=== PATIENT | female | born 1940 | race Two or more races ===

== ENCOUNTER 2024-05-12 12:53 | Emergency (ER) | payer OTHER ==
[~2024-05-12] VITALS: Ht 157.5 cm; Wt 61.2 kg
[2024-05-12] MEDS ORDERED: KETOROLAC TROMETHAMINE 30 MG VIAL IV STA (17:16)
[2024-05-12] MEDS ORDERED: MEPERIDINE HCL/PF 25 MG/ML VIAL IM STA (17:24)
[2024-05-12] MEDS ORDERED: ONDANSETRON HCL 2 MG/ML VIAL IV STA (17:25)
[2024-05-12] MEDS ORDERED: KETOROLAC TROMETHAMINE 30 MG VIAL ONE (17:29)
[2024-05-12] MEDS ORDERED: ONDANSETRON HCL 2 MG/ML VIAL ONE (17:29)
[2024-05-12 18:03] LABS: HEMATOCRIT 35.9 % (36.0-45.00); MEAN CELL VOLUME 93.4 fL (80.00-100.00); MEAN CORPUSCULAR HEMOGLOBIN 31.1 pg (27.00-32.0); MEAN CORPUSCULAR HGB CONC 33.3 g/dl (32.0-36.0); PLATELET COUNT 388 K/uL (150-450); RED BLOOD COUNT 3.85 M/uL (4.00-6.00)
[2024-05-12 18:05] LABS: RED CELL DISTRIBUTION WIDTH 17.8 % (11.5-14.5)
[2024-05-12 18:24] LABS: INR 1.02; PARTIAL THROMBOPLASTIN TIME 20.5 SECONDS (22.0-34.0); PROTHROMBIN TIME 11.1 SECONDS (9.0-11.5)
[2024-05-12 18:25] LABS: CALCIUM 10.4 mg/dL (8.5-10.1); CREATININE SERUM 1.17 mg/dL (0.55-1.02); GFR 43.96; POTASSIUM 4.29 mEq/L (3.5-5.1)
== END 2024-05-13 12:10 | disposition home or self-care (01) ==
LOC: ER 12:53
DX: S70.01XA Contusion of right hip, initial encounter (principal); W19.XXXA Unspecified fall, initial encounter; Y93.89 Activity, other specified; Y92.89 Other specified places as the place of occurrence of the external cause; Y99.8 Other external cause status; M54.50 Low back pain, unspecified; M54.16 Radiculopathy, lumbar region; R53.81 Other malaise; Z88.8 Allergy status to other drugs, medicaments and biological substances
CPT/HCPCS: 36415; 72100; 73521; 73552; 96372; 99283; J1885; J2405; J3490

== ENCOUNTER 2024-05-14 00:59 | Inpatient (IN) | payer OTHER ==
[~2024-05-14] VITALS: Ht 152.4 cm; Wt 45.4 kg
[2024-05-14] MEDS ORDERED: 0.9 % SODIUM CHLORIDE 1,000 ML IV ONE (02:00)
[2024-05-14] MEDS ORDERED: 0.9 % SODIUM CHLORIDE 250 ML IV SCH (02:00)
--- NOTE | 2024-05-14 02:11 | NUR ---
SE RECIBE PACIENTE ALERTA Y ORIENTADA X3 EN COMPANIUA DE PARAMEDICOS E AMBULANCIA LOS CUALES REFIEREN TRAER A PACIENTE A CAUSA DE QUE BOLIVAR ESTADO HIPOACTIVA Y CON HIPOTENSION. AL MOMENTO PACIENTE PRESENTA 60/40 DE B/P. SE REALIZA EKG Y SE BICA.
--- NOTE | 2024-05-14 02:30 | NUR ---
SE COLACA EN ANA YARITZA # 2 SE CONECTA A MONITOR CARDIACO Y OXIMETRIA DE PULSO. SE CANALIZA X2 EN ANTEBRAZO DERECHO # 20 Y BRAZO DERECHO # 18 SE COLOCA PUSH DE 0.9NSS 250ML POR ORDEN VERBAL DE DR. HUERTA. SE SANJANA MUESTRAS DE LABORATORIOS ORDENAS Y SE ENVIAN. SE COLOCA CATETER HOGAN Y SE OBSERVA 5 ML DE EGRESO URINARIO. PENDIENTE A MARILOU MUESTRA DE U/A Y U/C. PENDIENTE A PLACA Y CT HEAD
[2024-05-14 03:01] LABS: POTASSIUM 4.04 mEq/L (3.5-5.1)
[2024-05-14 03:04] LABS: INR 1.05; PARTIAL THROMBOPLASTIN TIME 24.2 SECONDS (22.0-34.0); PROTHROMBIN TIME 11.4 SECONDS (9.0-11.5)
[2024-05-14 03:10] LABS: BILIRUBIN TOTAL 1.19 mg/dL (0.3-1.2); CALCIUM 10.3 mg/dL (8.5-10.1); CREATININE SERUM 1.92 mg/dL (0.55-1.02); GFR 24.82; GLOBULINA 3.6 G/DL (2.4-3.5); HEMATOCRIT 34.7 % (36.0-45.00); HEMOGLOBIN 11.6 g/dL (12.0-15.00); MEAN CELL VOLUME 92.7 fL (80.00-100.00); MEAN CORPUSCULAR HGB CONC 33.4 g/dl (32.0-36.0); PLATELET COUNT 430 K/uL (150-450); RED BLOOD COUNT 3.74 M/uL (4.00-6.00); RED CELL DISTRIBUTION WIDTH 17.9 % (11.5-14.5); TOTAL PROTEIN 6.6 gm/dL (6.4-8.2)
--- NOTE | 2024-05-14 03:48 | NUR ---
SE OBSERVO AREA DE PRESION SACRAL ESTADIO 1 SE COLOCA PARCHO PREVENTIVO
[2024-05-14] MEDS ORDERED: CEFTRIAXONE SODIUM 1,000 MG VIAL IV STA (03:54)
[2024-05-14] MEDS ORDERED: CEFTRIAXONE SODIUM 1,000 MG VIAL ONE (04:01)
--- NOTE | 2024-05-14 04:36 | NUR ---
SE LLEVA PACIENTE A CT SCAN SE REALIZA EL MISMO. POR ORDEN VERBAL DE DR. HUERTA SE COLOCA PACIENTE EN AREA DE K-8 CON MONITOR CARDIACO Y OXIMETRIA DE PULSO. SE ENTREGA PACIENTE A RN ROMEL LI PENDIENTE A MARILOU U/A Y U/A Y TROPONINA MIMS 6:30AM.
--- NOTE | 2024-05-14 07:00 | NUR ---
SE RECIBE PTE ALERTA ORIENTADA EN PERSONA EN CAMA CON BARANDAS ELEVADAS POR NICOLAS SEGURIDAD CONECTADA A MONITOR CARDIACO.VENOPUNCION PATENTE AALIYAH DE EDEMA Y ERITEMA RECIBIENDO 0.9 NSS BAJANDO A 150ML/HR .CON SONDA URINARIA A GRAVEDAD CON POCO EGRESO.PENDIENTE U/A Y U/C.
[2024-05-14] MEDS ORDERED: OSELTAMIVIR PHOSPHATE 75 MG CAPSULE PO SCH (13:21)
[2024-05-14] MEDS ORDERED: CEFTRIAXONE SODIUM 2,000 MG in 0.9 % SODIUM CHLORIDE 100 ML IV SCH (13:23)
[2024-05-14] MEDS ORDERED: 0.9 % SODIUM CHLORIDE 1,000 ML IV SCH (13:30)
[2024-05-14] MEDS ORDERED: ACETAMINOPHEN 500 MG GEL..CAP PO PRN (13:30)
[2024-05-14 14:40] LABS: PH,URINE 5.5 (5.0-8.0); URINE APPEARANCE Cloudy; URINE BILIRRUBIN Negative (NEGATIVE); URINE BLOOD Moderate; URINE COLOR Yellow; URINE GLUCOSE Negative (NEGATIVE); URINE KETONE Negative (NEGATIVE); URINE LEUKOCYTE Small; URINE NITRATE Negative; URINE PROTEIN 30 (NEGATIVE)
[2024-05-14 14:42] LABS: URINE BACTERIA 637.6 uL (0.0-1933); URINE CAST 4.56 uL (0.0-1.40); URINE EPITHELIAL CELLS 130.6 uL (0.0-38.8); URINE RBC 13.1 uL (0.0-20.8); URINE WBC 124.7 uL (0.0-23.2)
[2024-05-14 14:59] LABS: URINE CRYSTALS FEW /HPF; URINE MUCUS SCANT
[2024-05-14 16:06] VITALS: BP 124/76; O2SAT 97
[2024-05-14 16:53] LABS: INR 1.07; PARTIAL THROMBOPLASTIN TIME 24.5 SECONDS (22.0-34.0); PROTHROMBIN TIME 11.6 SECONDS (9.0-11.5)
[2024-05-14 16:58] LABS: ALBUMIN 2.5 gm/dL (3.4-5.0); CALCIUM 9.4 mg/dL (8.5-10.1); CREATININE SERUM 2.11 mg/dL (0.55-1.02); GFR 22.26; PHOSPHOROUS 3.5 mg/dL (2.5-4.9); POTASSIUM 4.18 mEq/L (3.5-5.1)
[2024-05-14 17:03] LABS: C-REACTIVE PROTEIN 10.9 MG/DL (0.00-0.29)
[2024-05-14 21:00] VITALS: O2SAT 90
[2024-05-14 21:29] VITALS: BP 111/57; O2SAT 97
[2024-05-14 23:59] VITALS: O2SAT 99
[2024-05-15] VITALS (10 sets, daily range): BP systolic 97–119; BP diastolic 51–68; O2SAT 94–99
[2024-05-15 07:01] LABS: HEMATOCRIT 31.3 % (36.0-45.00); HEMOGLOBIN 10.4 g/dL (12.0-15.00); MEAN CELL VOLUME 93.2 fL (80.00-100.00); MEAN CORPUSCULAR HEMOGLOBIN 31.1 pg (27.00-32.0); MEAN CORPUSCULAR HGB CONC 33.3 g/dl (32.0-36.0); PLATELET COUNT 378 K/uL (150-450); RED BLOOD COUNT 3.36 M/uL (4.00-6.00); RED CELL DISTRIBUTION WIDTH 17.5 % (11.5-14.5)
[2024-05-15] MEDS ORDERED: OSELTAMIVIR PHOSPHATE 30MG CAP PO SCH (09:00)
[2024-05-15] MEDS ORDERED: LINEZOLID IN DEXTROSE 5% 600 MG/300 ML PIGGYBAG IV SCH (09:00)
[2024-05-15] MEDS ORDERED: METOPROLOL SUCCINATE 50 MG TAB.SR.24H PO STA (10:01)
[2024-05-15] MEDS ORDERED: DILTIAZEM HCL 125 MG in 0.9 % SODIUM CHLORIDE 100 ML IV SCH (12:00)
[2024-05-15] MEDS ORDERED: DILTIAZEM HCL 125MG/25ML VIAL IV ONE ×2 (12:06→22:14)
[2024-05-15] MEDS ORDERED: Daptomycin 350 MG/VIAL VIAL IV NR (15:30)
[2024-05-15] MEDS ORDERED: LACTOBACILLUS ACIDOPHILUS 1 CAP CAP PO SCH (17:00)
[2024-05-16] VITALS (9 sets, daily range): BP systolic 82–95; BP diastolic 5–59; O2SAT 94–97
[2024-05-16] MEDS ORDERED: MUPIROCIN 22 GM OINT..GM TUBE NASAL SCH (17:00)
[2024-05-16] MEDS ORDERED: METOPROLOL TARTRATE 5MG/5ML AMPUL IV ONE (23:15)
[2024-05-17] VITALS (8 sets, daily range): BP systolic 101–107; BP diastolic 51–66; O2SAT 96–98
[2024-05-17] MEDS ORDERED: CHLORHEXIDINE GLUCONATE 120 ML BOTTLE TOP SCH (09:00)
[2024-05-17] MEDS ORDERED: ENOXAPARIN SODIUM 40 MG/0.4 ML SYRINGE SUBCUTANEO SCH (09:00)
[2024-05-17] MEDS ORDERED: Daptomycin 350 MG/VIAL VIAL IV SCH (17:00)
[2024-05-18] VITALS (9 sets, daily range): BP systolic 99–147; BP diastolic 60–68; O2SAT 94–98
[2024-05-18] MEDS ORDERED: Daptomycin 350 MG/VIAL VIAL IV SCH (09:00)
[2024-05-18 10:55] LABS: MEAN CELL VOLUME 90.7 fL (80.00-100.00); MEAN CORPUSCULAR HGB CONC 33.1 g/dl (32.0-36.0); PLATELET COUNT 401 K/uL (150-450); RED CELL DISTRIBUTION WIDTH 17.4 % (11.5-14.5)
[2024-05-18 10:58] LABS: HEMOGLOBIN 9.6 g/dL (12.0-15.00)
[2024-05-18 11:51] LABS: CALCIUM 8.4 mg/dL (8.5-10.1); CREATININE SERUM 0.97 mg/dL (0.55-1.02); GFR 54.58; POTASSIUM 3.2 mEq/L (3.5-5.1)
[2024-05-19] VITALS (13 sets, daily range): BP systolic 103–129; BP diastolic 59–75; O2SAT 90–100
[2024-05-19 10:01] LABS: HEMATOCRIT 29.4 % (36.0-45.00); MEAN CELL VOLUME 89.3 fL (80.00-100.00); MEAN CORPUSCULAR HGB CONC 33.5 g/dl (32.0-36.0); PLATELET COUNT 430 K/uL (150-450); RED CELL DISTRIBUTION WIDTH 17.8 % (11.5-14.5)
[2024-05-19 10:04] LABS: HEMOGLOBIN 9.8 g/dL (12.0-15.00); MEAN CORPUSCULAR HEMOGLOBIN 29.6 pg (27.00-32.0)
[2024-05-19 10:06] LABS: CALCIUM 8.6 mg/dL (8.5-10.1); CREATININE SERUM 0.88 mg/dL (0.55-1.02); GFR 61.07; POTASSIUM 3.49 mEq/L (3.5-5.1)
[2024-05-20] VITALS (16 sets, daily range): BP systolic 97–130; BP diastolic 56–85; O2SAT 90–100
[2024-05-20 06:49] LABS: CALCIUM 7.8 mg/dL (8.5-10.1); CREATININE SERUM 0.8 mg/dL (0.55-1.02); GFR 68.17
[2024-05-20 07:13] LABS: POTASSIUM 2.81 mEq/L (3.5-5.1)
[2024-05-20] MEDS ORDERED: Daptomycin 350 MG/VIAL VIAL IV SCH (09:00)
[2024-05-20] MEDS ORDERED: POTASSIUM CHLORIDE 20MEQ/100ML H2O PB IV ONE (10:07)
[2024-05-20] MEDS ORDERED: POTASSIUM CHLORIDE 20MEQ/100ML H2O PB IV SCH (13:00)
[2024-05-20] MEDS ORDERED: METOPROLOL TARTRATE 25 MG TABLET PO SCH (17:00)
[2024-05-20] MEDS ORDERED: AMIODARONE HCL 200 MG TABLET PO SCH (21:00)
[2024-05-21] VITALS (18 sets, daily range): BP systolic 107–148; BP diastolic 69–103; O2SAT 95–100
[2024-05-21] MEDS ORDERED: METOPROLOL TARTRATE 25 MG TABLET PO SCH (09:00)
[2024-05-21 09:13] LABS: CALCIUM 7.6 mg/dL (8.5-10.1); CREATININE SERUM 0.68 mg/dL (0.55-1.02); GFR 82.23; POTASSIUM 3.76 mEq/L (3.5-5.1)
[2024-05-21] MEDS ORDERED: Daptomycin 350 MG/VIAL VIAL IV SCH (12:00)
[2024-05-21] MEDS ORDERED: PIPERACILLIN/TAZOBACTAM SODIUM 4.5 GM VIAL IV SCH (21:00)
[2024-05-22] VITALS (11 sets, daily range): BP systolic 109–144; BP diastolic 45–84; O2SAT 94–100
[2024-05-22 07:00] LABS: CALCIUM 7.8 mg/dL (8.5-10.1); CREATININE SERUM 0.75 mg/dL (0.55-1.02); GFR 73.44; POTASSIUM 3.82 mEq/L (3.5-5.1)
[2024-05-22] MEDS ORDERED: FUROsemide 20 MG/2 ML VIAL IV NR (11:45)
[2024-05-23] VITALS (9 sets, daily range): BP systolic 102–131; BP diastolic 48–74; O2SAT 94–100
[2024-05-23] MEDS ORDERED: FUROsemide 20 MG/2 ML VIAL IV SCH (09:00)
[2024-05-23] MEDS ORDERED: AMIODARONE HCL 200 MG TABLET PO SCH (09:00)
[2024-05-23] MEDS ORDERED: METOPROLOL TARTRATE 50 MG TABLET PO SCH (17:00)
[2024-05-24] VITALS (10 sets, daily range): BP systolic 100–125; BP diastolic 50–95; O2SAT 95–100
[2024-05-24] MEDS ORDERED: AMIODARONE IN DEXTROSE,ISO-OSM 360 MG/200 ML IV.SOLN IV ONE (01:55)
[2024-05-24 11:57] LABS: HEMATOCRIT 26.3 % (36.0-45.00); MEAN CELL VOLUME 87.6 fL (80.00-100.00); MEAN CORPUSCULAR HEMOGLOBIN 29.6 pg (27.00-32.0); MEAN CORPUSCULAR HGB CONC 33.8 g/dl (32.0-36.0); PLATELET COUNT 520 K/uL (150-450); RED CELL DISTRIBUTION WIDTH 18.4 % (11.5-14.5)
[2024-05-24 11:58] LABS: HEMOGLOBIN 8.9 g/dL (12.0-15.00)
[2024-05-24 12:08] LABS: ALBUMIN 1.5 gm/dL (3.4-5.0); BILIRUBIN TOTAL 0.64 mg/dL (0.3-1.2); CALCIUM 7.9 mg/dL (8.5-10.1); CREATININE SERUM 0.92 mg/dL (0.55-1.02); GFR 58.02; GLOBULINA 4.6 G/DL (2.4-3.5); TOTAL PROTEIN 6.1 gm/dL (6.4-8.2)
[2024-05-24 12:16] LABS: POTASSIUM 2.64 mEq/L (3.5-5.1)
[2024-05-24] MEDS ORDERED: POTASSIUM CHLORIDE IN WATER 40 MEQ/100 ML PIGGYBAG IV NR (15:00)
[2024-05-25 03:58] VITALS: BP 117/48; O2SAT 100
[2024-05-25 07:01] VITALS: BP 123/52; O2SAT 100
[2024-05-25 07:05] LABS: HEMATOCRIT 24.7 % (36.0-45.00); MEAN CELL VOLUME 87.9 fL (80.00-100.00); MEAN CORPUSCULAR HEMOGLOBIN 30.6 pg (27.00-32.0); MEAN CORPUSCULAR HGB CONC 34.8 g/dl (32.0-36.0); PLATELET COUNT 462 K/uL (150-450); RED BLOOD COUNT 2.81 M/uL (4.00-6.00); RED CELL DISTRIBUTION WIDTH 18.5 % (11.5-14.5)
[2024-05-25 07:06] LABS: CALCIUM 8.3 mg/dL (8.5-10.1); CREATININE SERUM 0.91 mg/dL (0.55-1.02); GFR 58.75; POTASSIUM 3.43 mEq/L (3.5-5.1)
[2024-05-25 07:18] LABS: HEMOGLOBIN 8.6 g/dL (12.0-15.00)
[2024-05-25 12:00] VITALS: BP 114/63; O2SAT 100
[2024-05-25 16:57] VITALS: BP 110/61
[2024-05-25] MEDS ORDERED: Daptomycin 350 MG/VIAL VIAL IV SCH (17:00)
[2024-05-26 01:20] VITALS: BP 127/56
[2024-05-26 08:08] VITALS: BP 145/72
[2024-05-26] MEDS ORDERED: NYSTATIN TOP SCH (10:58)
[2024-05-26] MEDS ORDERED: SILVER SULFADIAZINE TOP SCH (10:58)
[2024-05-26] MEDS ORDERED: ZINC OXIDE TOP SCH (10:58)
[2024-05-26] MEDS ORDERED: SILVER SULFADIAZINE 50 GM,NYSTATIN 30 GM,ZINC OXIDE 30 GM TOP SCH (13:00)
[2024-05-26 16:52] VITALS: BP 108/61; O2SAT 98
[2024-05-26] MEDS ORDERED: FAMOtidine 20 MG TABLET PO SCH (21:00)
[2024-05-26] MEDS ORDERED: LORazepam 0.5 MG TABLET PO SCH (21:00)
[2024-05-27 01:58] VITALS: BP 118/60
[2024-05-27 06:34] LABS: HEMOGLOBIN 10.8 g/dL (12.0-15.00); MEAN CELL VOLUME 89.7 fL (80.00-100.00); MEAN CORPUSCULAR HEMOGLOBIN 30.3 pg (27.00-32.0); MEAN CORPUSCULAR HGB CONC 33.8 g/dl (32.0-36.0); PLATELET COUNT 450 K/uL (150-450); RED BLOOD COUNT 3.57 M/uL (4.00-6.00); RED CELL DISTRIBUTION WIDTH 18.8 % (11.5-14.5)
[2024-05-27 08:36] VITALS: BP 140/51
[2024-05-27 10:55] LABS: CALCIUM 8.9 mg/dL (8.5-10.1); CREATININE SERUM 0.94 mg/dL (0.55-1.02); GFR 56.59; POTASSIUM 3.54 mEq/L (3.5-5.1)
[2024-05-27 20:18] VITALS: BP 107/57; O2SAT 97
[2024-05-28 02:12] VITALS: BP 128/67
[2024-05-28 09:29] VITALS: BP 131/62
[2024-05-28] MEDS ORDERED: SODIUM HYPOCHLORITE 1OZ TOP SCH (11:00)
[2024-05-28 17:23] VITALS: BP 124/57; O2SAT 98
[2024-05-29 01:55] VITALS: BP 127/57
[2024-05-29 12:27] VITALS: BP 142/79
[2024-05-29 16:55] VITALS: BP 90/60; O2SAT 99
[2024-05-30 00:51] VITALS: BP 116/53
[2024-05-30 08:55] VITALS: BP 100/60; O2SAT 98
[2024-05-30 14:35] LABS: HEMATOCRIT 29.2 % (36.0-45.00); HEMOGLOBIN 9.6 g/dL (12.0-15.00); MEAN CELL VOLUME 87.9 fL (80.00-100.00); PLATELET COUNT 572 K/uL (150-450); RED BLOOD COUNT 3.33 M/uL (4.00-6.00); RED CELL DISTRIBUTION WIDTH 19.4 % (11.5-14.5)
[2024-05-30 14:53] LABS: ALBUMIN 1.5 gm/dL (3.4-5.0); BILIRUBIN TOTAL 0.7 mg/dL (0.3-1.2); CALCIUM 8.4 mg/dL (8.5-10.1); CREATININE SERUM 1.19 mg/dL (0.55-1.02); GFR 43.11; GLOBULINA 4.8 G/DL (2.4-3.5); TOTAL PROTEIN 6.3 gm/dL (6.4-8.2)
[2024-05-30 14:55] LABS: POTASSIUM 2.68 mEq/L (3.5-5.1)
[2024-05-30] MEDS ORDERED: Daptomycin 350 MG/VIAL VIAL IV SCH (17:00)
[2024-05-30] MEDS ORDERED: POTASSIUM CHLORIDE IN WATER 40 MEQ/100 ML PIGGYBAG IV NR (17:00)
[2024-05-30] MEDS ORDERED: MAGNESIUM SULFATE IN WATER 2 GM/50 ML PIGGYBAG IV NR (17:00)
[2024-05-30 17:26] VITALS: BP 101/44
[2024-05-30] MEDS ORDERED: POTASSIUM BICARBONATE/CIT AC 25 MEQ TABLET.EFF PO SCH (18:00)
[2024-05-31 00:40] VITALS: BP 95/61
[2024-05-31 09:29] VITALS: BP 108/50; O2SAT 98
[2024-05-31] MEDS ORDERED: SPIRONOLACTONE 50 MG TABLET PO NR (12:00)
[2024-05-31 18:25] VITALS: BP 93/45
[2024-05-31] MEDS ORDERED: METOPROLOL TARTRATE 25 MG TABLET PO SCH (21:00)
[2024-06-01 00:35] VITALS: BP 115/51
[2024-06-01 07:24] LABS: CALCIUM 9.2 mg/dL (8.5-10.1); CREATININE SERUM 1.06 mg/dL (0.55-1.02); GFR 49.27; POTASSIUM 3.31 mEq/L (3.5-5.1)
[2024-06-01 07:44] LABS: MEAN CORPUSCULAR HEMOGLOBIN 29.8 pg (27.00-32.0); MEAN CORPUSCULAR HGB CONC 33.1 g/dl (32.0-36.0); RED BLOOD COUNT 3.08 M/uL (4.00-6.00); RED CELL DISTRIBUTION WIDTH 19.3 % (11.5-14.5)
[2024-06-01 07:54] LABS: HEMOGLOBIN 9.2 g/dL (12.0-15.00)
[2024-06-01 07:55] LABS: HEMATOCRIT 27.8 % (36.0-45.00); PLATELET COUNT 567 K/uL (150-450)
[2024-06-01] MEDS ORDERED: SPIRONOLACTONE 50 MG TABLET PO SCH (09:00)
[2024-06-01 09:03] VITALS: BP 118/60; O2SAT 95
[2024-06-01 17:28] VITALS: BP 115/50
[2024-06-02 02:21] VITALS: BP 125/64; O2SAT 99
[2024-06-02 07:52] LABS: CREATININE SERUM 1.21 mg/dL (0.55-1.02); GFR 42.29; POTASSIUM 3.52 mEq/L (3.5-5.1)
[2024-06-02 08:00] VITALS: BP 120/44
[2024-06-02 17:47] VITALS: BP 133/74
[2024-06-03 01:00] VITALS: BP 124/58
[2024-06-03 08:39] VITALS: BP 122/53
== END 2024-06-03 15:08 | disposition home or self-care (01) | DRG 871 ==
LOC: ER 00:59 → MEDJ 13:56 → MEDI 13:56 → MEDJ 16:08 → ICU 05-19 18:16 → MEDJ 05-25 14:54
PROVIDERS: General Practice; Internal Medicine; Internal Medicine Infectious Disease; Student in an Organized Health Care Education/Training Program; ADMIT Student in an Organized Health Care Education/Training Program; ATTEND Student in an Organized Health Care Education/Training Program
PROC: B020ZZZ Computerized Tomography (CT Scan) of Brain (ICD-10-PCS; 2024-05-14)
PROC: B24BYZZ Ultrasonography of Heart with Aorta using Other Contrast (ICD-10-PCS; 2024-05-14)
PROC: 4A12X4Z Monitoring of Cardiac Electrical Activity, External Approach (ICD-10-PCS; 2024-05-14)
PROC: 02HV33Z Insertion of Infusion Device into Superior Vena Cava, Percutaneous Approach (ICD-10-PCS; 2024-05-19)
PROC: 8E0ZXY6 Isolation (ICD-10-PCS; principal; 2024-05-23)
PROC: 0HB6XZZ Excision of Back Skin, External Approach (ICD-10-PCS; 2024-05-28)
DX: A41.9 Sepsis, unspecified organism (principal); I21.A1 Myocardial infarction type 2; L89.153 Pressure ulcer of sacral region, stage 3; J10.00 Influenza due to other identified influenza virus with unspecified type of pneumonia; N17.9 Acute kidney failure, unspecified; N39.0 Urinary tract infection, site not specified; E46 Unspecified protein-calorie malnutrition; J10.1 Influenza due to other identified influenza virus with other respiratory manifestations; I48.91 Unspecified atrial fibrillation